=== PATIENT | male | born 1940 | race Caucasian/White ===

== ENCOUNTER 2016-12-20 11:47 | Outpatient (CLI) | payer MEDICARE, BC | END 2016-12-20 11:48 | disposition home or self-care (01) | DX: E87.1 Hypo-osmolality and hyponatremia (principal) ==

== ENCOUNTER 2019-11-12 18:06 | Emergency (ER) | payer MEDICARE, BC ==
--- NOTE | 2019-11-12 19:37 | ED Physician Documentation ---
History of Present Illness - Stated complaint Stated Complaint: HIGH BP - Chief complaint Chief Complaint: General - History obtained from History obtained from: Patient - History of Present Illness Timing: Last night (79-year-old gentleman with longstanding hypertension, takes lisinopril, 40 mg at night, hydralazine 3 times daily and amlodipine 10 mg once a day. He started taking his blood pressure again recently and its been reliably high in the last night he felt chilled and had a panic attack in the middle of the night. He is seen a cops before but he says he is never had any trouble with his kidneys, also has seen a financial intern and no history of heart disease.) Review of Systems Constitutional: reports: Reviewed and negative Cardiac: denies: Chest pain / pressure, Palpitations, Pedal edema, Calf pain Respiratory: denies: Dyspnea, Cough PD PAST MEDICAL HISTORY - Present Medications Home Medications: Ambulatory Orders Medication Instructions Recorded Confirmed Lisinopril 40 mg PO QPM 01/20/16 01/20/16 amLODIPine [Norvasc] 10 mg PO DAILY 01/20/16 01/20/16 Lorazepam [Ativan] 1 mg PO TID PRN #7 tablet 11/12/19 hydrALAZINE [Apresoline] 25 mg PO TID 11/12/19 11/12/19 - Allergies Allergies/Adverse Reactions: Allergies Allergy/AdvReac Type Severity Reaction Status Date / Time No Known Drug Allergies Allergy Verified 11/12/19 18:20 PD ED PE NORMAL - Vitals Vital signs reviewed: Yes - General General: Alert and oriented X 3, No acute distress - HEENT HEENT: PERRL, EOMI - Neck Neck: Supple, no meningeal sign, No bony TTP - Cardiac Cardiac: RRR, Other (Subtle systolic murmur heard best at the left upper sternal border) - Respiratory Respiratory: Clear bilaterally - Abdomen Abdomen: Non tender - Extremities Extremities: No edema, No calf tenderness / cord - Neuro Neuro: Alert and oriented X 3, Normal speech Results - Vitals Vitals: Vital Signs - 24 hr 11/12/19 18:13 Temperature 36.7 C Heart Rate 84 Respiratory 18 Rate Blood Pressure 177/74 H O2 Saturation 97 Oxygen O2 Source Room air - EKG (time done) 1825 Rate: Rate (enter#) (74) Rhythm: NSR, GABY [place]: Normal Intervals: Normal [place] Ischemia: Q waves (anterior). No: ST elevation c/w ischemia Computer interpretation: Agree with computer - Labs Labs: Laboratory Tests 11/12/19 11/12/19 11/12/19 19:50 19:50 19:50 WBC 6.9 RBC 4.91 Hgb 14.9 Hct 43.5 MCV 88.6 MCH 30.3 MCHC 34.3 RDW 13.5 Plt Count 240 MPV 8.4 Neut # (Auto) 4.3 Lymph # (Auto) 2.0 [place] # (Auto) 0.5 Eos # (Auto) 0.1 Baso # (Auto) 0.0 Absolute Nucleated RBC 0.00 Nucleated RBC % 0.0 Sodium 128 L Potassium 3.9 Chloride 93 L Carbon Dioxide 24 Anion Gap 11.0 BUN 20 Creatinine 1.1 Estimated GFR (MDRD) 65 L Glucose 138 H Calcium 9.5 Total Bilirubin 1.0 AST 26 ALT 26 Alkaline Phosphatase 31 L Troponin I High Sens 11.6 Total Protein 7.9 Albumin 4.9 Globulin 3.0 Albumin/Globulin Ratio 1.6 Lipase 26 PD MEDICAL DECISION MAKING - ED course ED course: 79-year-old gentleman presents with elevated blood pressures recently, admits that a lot of it may be anxiety. Did not want me to change his blood pressure meds tonight, plans to see his physician tomorrow for that but did want something for anxiety and he was given a milligram of Ativan to go. Departure - Departure Disposition: 01 Home, Self Care Clinical Impression: Hypertension Qualifiers: Hypertension type: essential hypertension Qualified Code(s): I10 - Essential (primary) hypertension Condition: Good Record reviewed to determine appropriate education?: Yes Instructions: ED HTN Established Prescriptions: Lorazepam [Ativan] 1 mg PO TID PRN #7 tablet PRN Reason: Anxiety Comments: Your kidney function is good, no recent evidence of heart damage. You can talk with your doctor about changing or adding to your blood pressure medicines, but in the meantime you can take the Ativan as needed if anxiety is bad. Do not drink or drive with the Ativan.
[2019-11-12 20:01] LABS: BASOPHILS % (AUTO) 0.4 %; EOSINOPHILS # (AUTO) 0.1 10^3/uL (0.0-0.7); EOSINOPHILS % (AUTO) 0.9 %; HGB - HEMOGLOBIN 14.9 g/dL (14.0-18.0); LYMPHOCYTES % (AUTO) 29.7 %; MEAN CORPUSCULAR HEMOGLOBIN 30.3 pg (27.0-31.0); MEAN CORPUSCULAR HGB CONC 34.3 g/dL (32.0-36.0); MEAN CORPUSCULAR VOLUME 88.6 fL (80.0-94.0); MEAN PLATELET VOLUME 8.4 fL (7.4-11.4); MONOCYTES # (AUTO) 0.5 10^3/uL (0.0-1.0); MONOCYTES % (AUTO) 6.7 %; NEUTROPHILS # (AUTO) 4.3 10^3/uL (1.5-6.6); NEUTROPHILS % (AUTO) 61.9 %; PLT - PLATELET COUNT 240 10^3/uL (130-450); RED BLOOD COUNT 4.91 10^6/uL (4.70-6.10); RED CELL DISTRIBUTION WIDTH 13.5 % (12.0-15.0); WHITE BLOOD COUNT 6.9 x10^3/uL (4.8-10.8)
[2019-11-12 20:15] LABS: ALBUMIN 4.9 g/dL (3.2-5.5); ALBUMIN/GLOBULIN RATIO 1.6 (1.0-2.2); CALCIUM 9.5 mg/dL (8.5-10.3); CREATININE 1.1 mg/dL (0.6-1.2); TOTAL PROTEIN 7.9 g/dL (6.7-8.2)
[2019-11-12] MEDS ORDERED: LORazepam 1 MG TABLET PO STA (20:31)
[2019-11-12 20:45] VITALS: BP 170/69
== END 2019-11-12 20:47 | disposition home or self-care (01) ==
LOC: ED 18:06
DX: I10 Essential (primary) hypertension (principal); F41.9 Anxiety disorder, unspecified; R01.1 Cardiac murmur, unspecified
CPT/HCPCS: 36415; 80053; 83690; 84484; 85025; 93005; 99283; J8499

== ENCOUNTER 2020-03-13 08:00 | Outpatient (CLI) | payer MEDICARE, BC ==
[2020-03-13 13:29] LABS: BASOPHILS % (AUTO) 0.4 %; EOSINOPHILS % (AUTO) 0.4 %; LYMPHOCYTES # (AUTO) 1.2 10^3/uL (1.5-3.5); LYMPHOCYTES % (AUTO) 21.4 %; MEAN CORPUSCULAR HEMOGLOBIN 29.5 pg (27.0-31.0); MEAN CORPUSCULAR HGB CONC 33.2 g/dL (32.0-36.0); MONOCYTES # (AUTO) 0.4 10^3/uL (0.0-1.0); MONOCYTES % (AUTO) 6.4 %; NEUTROPHILS % (AUTO) 71.2 %; PLT - PLATELET COUNT 209 10^3/uL (130-450); RED BLOOD COUNT 4.74 10^6/uL (4.70-6.10); RED CELL DISTRIBUTION WIDTH 13.7 % (12.0-15.0); WHITE BLOOD COUNT 5.6 x10^3/uL (4.8-10.8)
[2020-03-13 13:40] LABS: ALBUMIN 4.8 g/dL (3.2-5.5); ALBUMIN/GLOBULIN RATIO 1.5 (1.0-2.2); BILIRUBIN,TOTAL 0.8 mg/dL (0.2-1.0); CALCIUM 9.8 mg/dL (8.5-10.3); CREATININE 0.9 mg/dL (0.6-1.2)
== END 2020-03-13 23:59 | disposition home or self-care (01) ==
LOC: LAB.WCP 08:00
PROVIDERS: ATTEND Family Medicine
DX: I10 Essential (primary) hypertension (principal)
CPT/HCPCS: 36415; 80053; 84443; 85025

== ENCOUNTER 2020-05-01 03:57 | Emergency (ER) | payer MEDICARE, BC ==
--- NOTE | 2020-05-01 04:09 | ED Physician Documentation ---
PD HPI CHEST PAIN - Stated complaint Stated Complaint: CP/NECK PX - History obtained from History obtained from: Patient, Family - History of Present Illness Timing - onset: Other (unclear duration (see narrative below)) Timing - onset during: Sleep Timing - details: Abrupt onset Pain level now: 3 Quality: Pain Location: Substernal Radiation: Neck, Abdominal Improved by: Nothing Worsened by: Other (no exacerbating factors) Associated symptoms: General Weakness Similar symptoms before: Has not had sx before Recently seen: Not recently seen - Additional information Additional information: c/o chest pain as part of a vague HPI that includes neck and upper abdominal pain. When I ask him to specifically tell me about the chest pain, he insists on giving details about changes in his blood pressure medications and doses that occurred several weeks ago. He does offer chest pain as part of his chief complaint. He also says he feels "sick" and "not myself", as well as difficulty with mental focus. Review of Systems Constitutional: reports: Fatigue. denies: Fever, Chills, Sweats Eyes: reports: Reviewed and negative Ears: reports: Reviewed and negative Nose: reports: Reviewed and negative Throat: reports: Reviewed and negative Cardiac: reports: Chest pain / pressure. denies: Palpitations, Pedal edema, Calf pain Respiratory: denies: Dyspnea, Cough GI: reports: Abdominal Pain. denies: Nausea, Vomiting : denies: Dysuria, Frequency Skin: reports: Reviewed and negative Musculoskeletal: reports: Neck pain. denies: Back pain, Extremity pain Neurologic: denies: Generalized weakness, Focal weakness, Numbness, Headache, Head injury PD PAST MEDICAL HISTORY - Past Medical History Cardiovascular: Hypertension, High cholesterol Respiratory: None Neuro: None Endocrine/Autoimmune: None GI: None : None HEENT: None Psych: None Musculoskeletal: None Derm: None - Past Surgical History Past Surgical History: Yes - Present Medications Home Medications: Ambulatory Orders Medication Instructions Recorded Confirmed Lisinopril 40 mg PO QPM 01/20/16 01/20/16 amLODIPine [Norvasc] 10 mg PO DAILY 01/20/16 01/20/16 Lorazepam [Ativan] 1 mg PO TID PRN #7 tablet 11/12/19 hydrALAZINE [Apresoline] 25 mg PO TID 11/12/19 11/12/19 - Allergies Allergies/Adverse Reactions: Allergies Allergy/AdvReac Type Severity Reaction Status Date / Time No Known Drug Allergies Allergy Verified 11/12/19 18:20 - Social History Does the pt smoke?: No Smoking Status: Never smoker Does the pt drink ETOH?: Yes Does the pt have substance abuse?: No - Immunizations Immunizations are current?: Yes - POLST Patient has POLST: No PD ED PE NORMAL - Vitals Vital signs reviewed: Yes - General General: Alert and oriented X 3, No acute distress, Well developed/nourished, Other (tangential at times) - HEENT HEENT: PERRL, EOMI - Neck Neck: Supple, no meningeal sign - Cardiac Cardiac: RRR, No murmur - Respiratory Respiratory: No respiratory distress, Clear bilaterally - Abdomen Abdomen: Soft, Non tender - Derm Derm: Normal color, Warm and dry - Extremities Extremities: No edema - Neuro Neuro: Alert and oriented X 3, county surveyor 2-12 intact, No motor deficit, No sensory deficit, Normal speech Eye Opening: Spontaneous Motor: Obeys Commands Verbal: Oriented GCS Score: 15 Results - Vitals Vitals: Vital Signs - 24 hr 05/01/20 05/01/20 05/01/20 04:00 04:23 04:27 Temperature 36.5 C Heart Rate 54 L 53 L Respiratory 22 14 Rate Blood Pressure 213/70 H Blood Pressure 213/70 H [Left] Blood Pressure 221/70 H [Right] O2 Saturation 100 98 05/01/20 05/01/20 05/01/20 04:30 04:41 04:44 Temperature Heart Rate 52 L 73 57 L Respiratory 14 20 20 Rate Blood Pressure 198/60 H 131/63 H 178/75 H Blood Pressure [Left] Blood Pressure [Right] O2 Saturation 99 99 98 05/01/20 05/01/20 05/01/20 04:47 04:51 04:57 Temperature Heart Rate 49 L 48 L 47 L Respiratory 20 18 17 Rate Blood Pressure 178/61 H 182/65 H 180/61 H Blood Pressure [Left] Blood Pressure [Right] O2 Saturation 98 99 98 Oxygen O2 Source Nasal cannula - EKG (time done) #1 Rate: Rate (enter#) (51), Dilshad Rhythm: Sinus bradycardia [place]: Normal Intervals: Normal NE QRS: Normal Ischemia: Q waves (V2, V3), Other (minimal ST elevation V2, V3 ) #2 Rate: Rate (enter#) (54), Dilshad Rhythm: Sinus bradycardia [place]: Normal Intervals: Normal NE QRS: Normal Ischemia: Q waves (V2, V3), Other (minimal ST elevation V2, V3) #3 Rate: Rate (enter#) (48) Rhythm: Sinus bradycardia [place]: Normal Intervals: Normal NE QRS: Normal Ischemia: Q waves (V2, V3), Other (minimal ST elevation (up to 1 mm) V2, V3) - Labs Labs: Laboratory Tests 05/01/20 05/01/20 05/01/20 04:11 04:11 04:11 WBC 9.4 RBC 4.12 L Hgb 12.6 L Hct 35.1 L MCV 85.2 MCH 30.6 MCHC 35.9 RDW 13.3 Plt Count 152 MPV 8.7 Neut # (Auto) 7.7 H Lymph # (Auto) 1.0 L [place] # (Auto) 0.5 Eos # (Auto) 0.0 Baso # (Auto) 0.0 Absolute Nucleated RBC 0.00 Nucleated RBC % 0.0 Sodium 118 L* Potassium 4.3 Chloride 83 L Carbon Dioxide 23 Anion Gap 12.0 BUN 15 Creatinine 0.8 Estimated GFR (MDRD) 93 Glucose 128 H Calcium 8.9 Total Bilirubin 1.0 AST 68 H ALT 65 H Alkaline Phosphatase 161 H Troponin I High Sens 118.1 H* Total Protein 7.1 Albumin 4.2 Globulin 2.9 Albumin/Globulin Ratio 1.4 Lipase 20 L PD MEDICAL DECISION MAKING - ED course Complexity details: reviewed old records, reviewed results, re-evaluated patient, considered differential, d/w patient, d/w family ED course: patient c/o chest pain as part of a larger and vague HPI that includes neck and upper abdominal pain. He is unable to provide specifics regarding the chest pain (such as time of onset, intensity, h/o similar discomfort). His blood tests reveal sodium level 118, which could account for many of his symptoms (including difficulty focusing his thoughts), but his EKG is concerning for ST elevation V2 V3 (Q waves in these leads were seen on previous EKG October 2019). D/W Dr. Chavez (ED MD at [facility]), accepts patient for transfer for possible STEMI. Patient was given SLNTG, PO ASA, and IV heparin. Shortly after these meds were given, I was called back into the room, as patient had sudden LOC with several witnesses in the room at the time including the medics that were here to transport patient to [facility]; they describe seeing bradycardia on monitor rapidly followed by sinus arrest. Patient was unconscious when I reassessed him with left-kim gaze and tonic stiffness to his body, unresponsive. He was bradycardic on the monitor with faint carotid pulse, heart rate on monitor appeared to be in the 20s but artifact also initially precluded a clear rhythm and rate interpretation. As pads were being placed and code cart was being brought to room, he had increasingly strong pulses (radial) correlating with increasing heart rate to 40s and then lower 50s. He had return to baseline LOC within 2-3 minutes from onset of event and reported feeling no better or worse than when I first assessed him on initial presentation. Plan for mode of transfer changed to air transport. Departure - Departure Disposition: 02 Transfer Acute Care Hosp Clinical Impression: Hyponatremia, Symptomatic bradycardia Chest pain Qualifiers: Chest pain type: unspecified Qualified Code(s): R07.9 - Chest pain, unspecified Condition: Stable Discharge Date/Time: 05/01/20 05:16
[2020-05-01] MEDS ORDERED: HEPARIN 5,000 UNIT/ML VIAL IVP STA (04:27)
[2020-05-01] MEDS ORDERED: ASPIRIN CHEW 81 MG TABLET PO STA (04:27)
[2020-05-01] MEDS ORDERED: HEPARIN 25000UNITS/500ML (D5W) 25,000 UNIT/500 ML BAG IV STA (04:27)
[2020-05-01 04:28] LABS: BASOPHILS % (AUTO) 0.3 %; EOSINOPHILS % (AUTO) 0.2 %; HGB - HEMOGLOBIN 12.6 g/dL (14.0-18.0); LYMPHOCYTES % (AUTO) 10.6 %; MEAN CORPUSCULAR HEMOGLOBIN 30.6 pg (27.0-31.0); MEAN CORPUSCULAR HGB CONC 35.9 g/dL (32.0-36.0); MEAN CORPUSCULAR VOLUME 85.2 fL (80.0-94.0); MEAN PLATELET VOLUME 8.7 fL (7.4-11.4); MONOCYTES # (AUTO) 0.5 10^3/uL (0.0-1.0); MONOCYTES % (AUTO) 5.7 %; NEUTROPHILS # (AUTO) 7.7 10^3/uL (1.5-6.6); NEUTROPHILS % (AUTO) 82.6 %; PLT - PLATELET COUNT 152 10^3/uL (130-450); RED BLOOD COUNT 4.12 10^6/uL (4.70-6.10); RED CELL DISTRIBUTION WIDTH 13.3 % (12.0-15.0); WHITE BLOOD COUNT 9.4 x10^3/uL (4.8-10.8)
[2020-05-01] MEDS ORDERED: NITROGLYCERIN SL 0.4 MG TABLET SL STA (04:28)
[2020-05-01 04:38] LABS: ALBUMIN 4.2 g/dL (3.2-5.5); ALBUMIN/GLOBULIN RATIO 1.4 (1.0-2.2); CALCIUM 8.9 mg/dL (8.5-10.3); CREATININE 0.8 mg/dL (0.6-1.2); TOTAL PROTEIN 7.1 g/dL (6.7-8.2)
[2020-05-01] MEDS ORDERED: ONDANSETRON 4 MG/2 ML VIAL ONE (04:51)
[2020-05-01 04:59] VITALS: BP 180/61
--- NOTE | 2020-05-01 08:28 | XRAY Report ---
PROCEDURE: Chest 1 View X-Ray INDICATIONS: Chest pain TECHNIQUE: One view of the chest was acquired. COMPARISON: 12/20/2016 FINDINGS: Surgical changes and devices: None. Lungs and pleura: No pleural effusions or pneumothorax. Lungs are clear. Mediastinum: Mediastinal contours appear normal. Heart size is normal. Bones and chest wall: No suspicious bony lesions. Overlying soft tissues appear unremarkable. IMPRESSION: No acute cardiopulmonary pathology. No discrepancies. Reviewed by: Aj Willis MD on 05/01/2020 8:27 AM PDT Approved by: Aj Willis MD on 05/01/2020 8:27 AM PDT Station ID: [id number]
== END 2020-05-01 05:16 | disposition short-term general hospital (02) ==
LOC: ED 03:57
DX: R07.9 Chest pain, unspecified (principal); E87.1 Hypo-osmolality and hyponatremia; R00.1 Bradycardia, unspecified; I45.5 Other specified heart block; R94.31 Abnormal electrocardiogram [ECG] [EKG]; I10 Essential (primary) hypertension
CPT/HCPCS: 36415; 71045; 80053; 83690; 84484; 85025; 93005; 96374; 99285; A9270

== ENCOUNTER 2020-05-15 09:07 | Outpatient (CLI) | payer MEDICARE, BC | END 2020-05-15 09:08 | disposition EMS.NT | LOC: EMS 09:07 | PROVIDERS: ATTEND Surgery | DX: R53.1 Weakness (principal); Z53.29 Procedure and treatment not carried out because of patient's decision for other reasons ==